=== PATIENT | female | born 1990 | race Two or more races ===

== ENCOUNTER 2016-09-19 11:00 | Emergency (ER) | payer MEDICAID ==
[~2016-09-19] VITALS: Ht 175.3 cm; Wt 83.5 kg
[2016-09-19 11:31] VITALS: BP 110/77
[2016-09-19] MEDS ORDERED: cefTRIAXone SOD 1,000 MG VL IM ONE (12:00)
== END 2016-09-19 13:00 | disposition home or self-care (01) ==
LOC: ER 11:00
DX: J03.90 Acute tonsillitis, unspecified (principal); H66.92 Otitis media, unspecified, left ear
CPT/HCPCS: 96372; 99283; J0696